=== PATIENT | male | born 1955 | race Caucasian/White ===

== ENCOUNTER 2016-11-28 07:00 | Emergency (ER) | payer OTHER ==
[~2016-11-28] VITALS: Ht 182.9 cm; Wt 98.0 kg
[~2016-11-28 07:00] MED LIST: ATOR20TA PO; DICL75 PO; NEXI20CA PO; TRAM50 PO
[2016-11-28 07:02] VITALS: BP 160/91; PULSE 70; RESP 18; TEMP 97.7; O2SAT 98
[2016-11-28] MEDS ORDERED: LIPI40TA PO (07:21)
[2016-11-28 07:32] LABS: BLOOD, URINE NEG (NEG); GLUCOSE,URINE NEG (NEG); KETONE, URINE NEG (NEG); NITRITE,URINE NEG (NEG); PH, URINE 5.5 (5.0-8.5)
[2016-11-28 07:41] LABS: METHOD OF COLLECTION CLEAN CATCH; URINE COLOR YELLOW (YELLW/STRAW)
[2016-11-28 07:42] LABS: COMMENT (UR) CULT NOT INDICATED; CULTURE IF INDICATED CULT NOT INDICATED; RBC, URINE 0-3 /hpf (0-3); SQUAMOUS EPITHELIAL CELL URINE 0-5 /hpf (0-5)
[2016-11-28] MEDS ORDERED: ONDANSETRON HCL 4 MG/2 ML VIAL IV PUSH ONE (07:45)
[2016-11-28] MEDS ORDERED: KETOROLAC TROMETHAMINE 30 MG/ML (IVP) VIAL IV PUSH ONE (07:45)
[2016-11-28] MEDS ORDERED: HYDROmorphone HCL PF 1 MG/ML VIAL IV PUSH ONE (07:45)
[2016-11-28] MEDS ORDERED: SODIUM CHLOR 0.9% 1000 ML INJ 1,000 ML IV SCH (07:45)
[2016-11-28 07:51] LABS: AUTOMATED NEUTROPHIL # 4.2 TH/MM3 (1.8-7.7); BASOPHIL # 0.1 TH/MM3 (0-0.2); BASOPHIL % 1.6 % (0.0-2.0); EOSINOPHIL # 0.2 TH/MM3 (0-0.4); EOSINOPHIL % 3.1 % (0.0-4.0); HEMO FLAGS DIFF FINAL; LYMPH % 30.7 % (9.0-44.0); LYMPHOCYTE # 2.1 TH/MM3 (1.0-4.8); MEAN CELL VOLUME 83.7 FL (80.0-100.0); MEAN CORPUSCULAR HEMOGLOBIN 26.7 PG (27.0-34.0); MEAN CORPUSCULAR HGB CONC 31.9 % (32.0-36.0); MONO % 4.9 % (0.0-8.0); NEUT % 59.7 % (16.0-70.0); PLATELET COUNT 249 TH/MM3 (150-450); RED BLOOD COUNT 5.49 MIL/MM3 (4.50-5.90); RED CELL DISTRIBUTION WIDTH 13.9 % (11.6-17.2); WHITE BLOOD COUNT 6.9 TH/MM3 (4.0-11.0)
[2016-11-28 08:00] LABS: CHLORIDE 108 MEQ/L (98-107); POTASSIUM 4.2 MEQ/L (3.5-5.1); SODIUM (NA) 143 MEQ/L (136-145)
[2016-11-28 08:04] LABS: ANION GAP 10 MEQ/L (5-15); BICARBONATE 25.3 MEQ/L (21.0-32.0); BLOOD UREA NITROGEN 20 MG/DL (7-18)
[2016-11-28 08:07] LABS: ALT (GPT) 34 U/L (12-78); AST (GOT) 15 U/L (15-37); GLOMERULAR FILTRATION RATE 76 ML/MIN (>89)
[2016-11-28 08:08] LABS: TOTAL BILIRUBIN ADULT 1.7 MG/DL (0.2-1.0)
[2016-11-28 08:10] LABS: ALKALINE PHOSPHATASE 72 U/L (45-117)
--- NOTE | 2016-11-28 08:29 | RADHPO ---
EXAM DATE/TIME: 11/28/2016 08:07 [place] COMPARISON: No previous studies available for comparison. INDICATIONS : Right flank pain. ORAL CONTRAST: No oral contrast ingested. RADIATION DOSE: 21.06 CTDIvol (mGy) MEDICAL HISTORY : Renal calculi. Chronic obstructive pulmonary disease. Gastroesophageal reflux disease. SURGICAL HISTORY : Surgery to remove renal calculi. ENCOUNTER: Initial ACUITY: 1 day PAIN SCALE: 2/10 LOCATION: Right flank TECHNIQUE: Volumetric scanning of the abdomen and pelvis was performed. Using automated exposure control and ad justment of the mA and/or kV according to patient size, radiation dose was kept as low as reasonably achievable to obtain optimal diagnostic quality images. FINDINGS: LOWER LUNGS: The visualized lower lungs are clear. LIVER: Homogeneous density without lesion. There is no dilation of the biliary tree. No calcified gallston es. SPLEEN: Normal size without lesion. PANCREAS: Within normal limits. KIDNEYS: The right renal collecting system is mildly hydronephrotic. A 2.6 mm calcified stone is identified wi thin the right ureterovesical junction or adjacent to it. The left kidney is relatively unremarkable except for small simple cyst off the upper pole. ADRENAL GLANDS: A 3.6 cm hypodense nodule is identified in the left adrenal gland. The right adrenal gland is unremar kable. VASCULAR: There is no aortic aneurysm. BOWEL/MESENTERY: Small to moderate hiatal hernia is noted. The stomach, small bowel, and colon demonstrate no acute ab normality. There is no free intraperitoneal air or fluid. ABDOMINAL WALL: Within normal limits. RETROPERITONEUM: There is no lymphadenopathy. BLADDER: No wall thickening or mass. Small calculus as described above. REPRODUCTIVE: Calcific deposits are seen in the prostate gland. INGUINAL: There is no lymphadenopathy or hernia. MUSCULOSKELETAL: Within normal limits for patient age. CONCLUSION: Mild right hydronephrosis with 2.6 mm calculus adjacent to or within the right ureterovesical junctio n. 3.6 cm hypodense left adrenal gland nodule characteristic of a benign adenoma. No significant abnormalities. Riley Batista MD on November 28, 2016 at 8:21 Board Certified Radiologist. This report was verified electronically.
[2016-11-28 08:35] VITALS: BP 157/76; PULSE 84; RESP 17; O2SAT 100
[2016-11-28] MEDS ORDERED: ZOFR4TAB3 SL (08:37)
[2016-11-28] MEDS ORDERED: NAPR500 PO (08:37)
[2016-11-28] MEDS ORDERED: HYDR-3533 PO (08:37)
--- NOTE | 2016-11-28 08:37 | PD ---
HPI Chief Complaint: Flank/Kidney Pain Time Seen by Provider: 07:35 Travel History International Travel<30 days: No Contact w/Intl Traveler<30days: No Traveled to known affect area: No History of Present Illness HPI This 61-year-old man who presents to the emergency department when he of right flank pain starting this morning. It is associated with nausea vomiting. No fevers or chills. Pain is severe. Feels similar to his previous kidney stones in the past. He's had 3 or 4 previous episodes of kidney stones, one which required surgery. History Past Medical History Narrative Medical Kidney stones Chronic bronchitis Tetanus Vaccination: < 5 Years Influenza Vaccination: Yes Social History Alcohol Use: Yes (OCC) Tobacco Use: No Allergies-Medications (Allergen,Severity, Reaction): Coded Allergies: No Known Allergies (Unverified , 11/28/16) Reported Meds & Prescriptions Reported Meds & Active Scripts Active Reported Lipitor (Atorvastatin Calcium) 40 Mg Tab 40 Mg PO HS Review of Systems Except as stated in HPI: all other systems reviewed are Neg Physical Exam Narrative GENERAL: 59-year-old man, uncomfortable and pacing. SKIN: Warm and dry. CARDIOVASCULAR: Regular rate and rhythm. No murmur appreciated. RESPIRATORY: No accessory muscle use. Clear to auscultation. Breath sounds equal bilaterally. GASTROINTESTINAL: Abdomen soft, non-tender, nondistended. Hepatic and splenic margins not palpable. MUSCULOSKELETAL: No obvious deformities. No clubbing. No cyanosis. No edema. NEUROLOGICAL: Awake and alert. No obvious cranial nerve deficits. Motor grossly within normal limits. Normal speech. PSYCHIATRIC: Appropriate mood and affect; insight and judgment normal. Data Data Last Documented VS Vital Signs Date Time Temp Pulse Resp B/P Pulse Ox O2 Delivery O2 Flow Rate FiO2 11/28/16 07:02 97.7 70 18 160/91 98 Orders Urinalysis - C+S If Indicated (11/28/16 07:22) Complete Blood Count With Diff (11/28/16 07:35) Comprehensive Metabolic Panel (11/28/16 07:35) Iv Access Insert/Monitor (11/28/16 07:35) Hydromorphone Pf Inj (Dilaudid Pf Inj) (11/28/16 07:45) Ketorolac Inj (Toradol Inj) (11/28/16 07:45) Ondansetron Inj (Zofran Inj) (11/28/16 07:45) Sodium Chlor 0.9% 1000 Ml Inj (Ns 1000 M (11/28/16 07:45) Ed Poc Ultrasound (11/28/16 ) Ct Abd/Pel W/O Iv Contrast (11/28/16 ) Labs Laboratory Tests Test 11/28/16 11/28/16 07:05 07:45 Urine Collection Type CLEAN CATCH Urine Color YELLOW Urine Turbidity CLEAR Urine pH 5.5 Urine Specific [place] 1.023 Urine Protein NEG mg/dL Urine Glucose (UA) NEG mg/dL Urine Ketones NEG mg/dL Urine Occult Blood NEG Urine Nitrite NEG Urine Bilirubin NEG Urine Leukocyte Esterase NEG Urine RBC 0-3 /hpf Urine Squamous Epithelial 0-5 /hpf Cells Microscopic Urinalysis Comment CULT NOT INDICATED Urine Collection Time 07:05 White Blood Count 6.9 TH/MM3 Red Blood Count 5.49 MIL/MM3 Hemoglobin 14.7 GM/DL Hematocrit 46.0 % Mean Corpuscular Volume 83.7 FL Mean Corpuscular Hemoglobin 26.7 PG Mean Corpuscular Hemoglobin 31.9 % Concent Red Cell Distribution Width 13.9 % Platelet Count 249 TH/MM3 Mean Platelet Volume 8.7 FL Neutrophils (%) (Auto) 59.7 % Lymphocytes (%) (Auto) 30.7 % Monocytes (%) (Auto) 4.9 % Eosinophils (%) (Auto) 3.1 % Basophils (%) (Auto) 1.6 % Neutrophils # (Auto) 4.2 TH/MM3 Lymphocytes # (Auto) 2.1 TH/MM3 Monocytes # (Auto) 0.3 TH/MM3 Eosinophils # (Auto) 0.2 TH/MM3 Basophils # (Auto) 0.1 TH/MM3 CBC Comment DIFF FINAL Differential Comment Sodium Level 143 MEQ/L Potassium Level 4.2 MEQ/L Chloride Level 108 MEQ/L Carbon Dioxide Level 25.3 MEQ/L Anion Gap 10 MEQ/L Blood Urea Nitrogen 20 MG/DL Creatinine 1.00 MG/DL Estimat Glomerular Filtration 76 ML/MIN Rate Random Glucose 181 MG/DL Calcium Level 9.0 MG/DL Total Bilirubin 1.7 MG/DL Aspartate Amino Transf 15 U/L (AST/SGOT) Alanine Aminotransferase 34 U/L (ALT/SGPT) Alkaline Phosphatase 72 U/L Total Protein 7.3 GM/DL Albumin 3.8 GM/DL MDM Medical Decision Making Medical Screen Exam Complete: Yes Emergency Medical Condition: Yes Interpretation(s) LABS: CBC unremarkable. CMP generally unremarkable. BUN to bit elevated. Total bili 1.7 CT abdomen and pelvis: Mild right hydronephrosis 2.6 mm calculus adjacent to her within the right ureterovesical junction. 3.6 hypodense left adrenal gland nodule characteristic of a benign adenoma. No significant abnormalities. Differential Diagnosis Renal lithiasis, AAA, UTI, other Narrative Course Medical decision making 61-year-old male with right flank pain nausea vomiting started abruptly this morning similar to previous kidney stones. CT scan confirms a 2.6 mm calculus in the right UVJ. Patient looks well. Improved. Recommend outpatient follow- up. Diagnosis Primary Impression: Ureterolithiasis Additional Instructions: Take Naprosyn and Lortab if needed for pain. Use Zofran as needed for nausea or vomiting. Follow-up with urologist in the next 3-5 days if you're not completely well. Return to the emergency department for any worsening pain, fevers, vomiting, or any other new or worsening symptoms. Med/Other Pt SpecificInfo: Prescription(s) given Scripts Ondansetron Odt (Zofran Odt)4 Mg Tab4 Mg SL Q8HR PRN (Nausea/Vomiting) #6 TAB May substitute non-ODT form. Prov:Steven Perez MD 11/28/16 Hydrocodone-Acetaminophen (Lortab)5-325 Mg Tab1-2 Tab PO Q6H PRN (PAIN) #10 TAB Prov:Steven Perez MD 11/28/16 Naproxen (Naprosyn)500 Mg Dcn082 Mg PO BID PRN (PAIN SCALE 1 TO 10) #10 TAB Prov:Steven Perez MD 11/28/16 Disposition: 01 DISCHARGE HOME Condition: Stable Steven Perez MD Nov 28, 2016 08:37
== END 2016-11-28 08:48 | disposition home or self-care (01) ==
LOC: PHED 07:00
DX: N20.1 Calculus of ureter (principal)
CPT/HCPCS: 74176; 80053; 81001; 85025; 96361; 96374; 96375; 99284; J1170; J1885; J2405; J7030